=== PATIENT | male | born 1990 | race American Indian/Alaskan Native ===

== ENCOUNTER 2017-04-19 10:39 | Emergency (ER) | payer BC ==
[2017-04-19 10:45] VITALS: O2SAT 98
[2017-04-19 11:44] LABS: BASO % 0.4 % (0.0-2.0); EOS # 0.1 K/uL (0.0-0.7); EOS % 2.5 % (0.0-4.0); HEMATOCRIT 40.5 % (35.0-51.0); LYMPH # 1.6 K/uL (1.0-4.3); LYMPH % 37.1 % (20.0-40.0); MEAN CELL VOLUME 90.3 fL (80.0-94.0); MEAN CORPUSCULAR HEMOGLOBIN 30.1 pg (27.0-31.0); MEAN CORPUSCULAR HGB CONC 33.3 g/dL (33.0-37.0); MEAN PLATELET VOLUME 8.1 fL (7.2-11.7); MONO # 0.4 K/uL (0.0-0.8); MONO % 9.1 % (0.0-10.0); NRBC % 0.1 % (0.0-2.0); RED CELL DISTRIBUTION WIDTH 12.7 % (11.5-14.5); WHITE BLOOD COUNT 4.3 K/uL (4.8-10.8)
[2017-04-19 11:50] LABS: URINE BILIRUBIN NEGATIVE (NEGATIVE); URINE BLOOD NEGATIVE (NEGATIVE); URINE COLOR Yellow (YELLOW); URINE GLUCOSE (UA) NORMAL (Normal); URINE KETONE NEGATIVE (NEGATIVE); URINE LEUKOCYTE ESTERASE NEG Leu/uL (Negative); URINE PROTEIN NEGATIVE (NEGATIVE); URINE UROBILINOGEN NORMAL mg/dL (0.2-1.0); WBC URINE < 1 /hpf (0-5)
[2017-04-19 11:52] LABS: CHLORIDE 105 mmol/L (98-107); SODIUM 143 mmol/L (132-148)
[2017-04-19 11:55] LABS: ALB/GLOB RATIO 1.4 (1.0-2.1); ALKALINE PHOSPHATASE 76 U/L (38-126); ALT/SGPT 110 U/L (21-72); AST/SGOT 94 U/L (17-59); BILIRUBIN,TOTAL 0.7 mg/dL (0.2-1.3); BLOOD UREA NITROGEN 15 mg/dL (9-20); CARBON DIOXIDE 26 mmol/L (22-30); GFR AFRICAN-AMERICAN > 60; GLUCOSE,RANDOM 96 mg/dL (75-110); TOTAL PROTEIN 7.8 g/dL (6.3-8.3)
[2017-04-19 11:56] LABS: CALCIUM 9.5 mg/dl (8.6-10.4)
--- NOTE | 2017-04-19 12:17 | C.PDOC ---
History Of Present Illness Patient is a 27 year old male presents to ED for evaluation of diffuse abdominal pain associated with diarrhea that started last night. Pt states these symptoms may be due to the rice he ate yesterday. (+) nausea (+)headache. Otherwise, denies any vomiting, urinary symptoms, fever, or any other associated symptoms at this time. Time Seen by Provider: 04/19/17 11:12 Chief Complaint (Nursing): Abdominal Pain History Per: Patient History/Exam Limitations: no limitations Onset/Duration Of Symptoms: Days (1), Sudden Onset Current Symptoms Are (Timing): Still Present Location Of Pain/Discomfort: Diffuse Radiation Of Pain To:: None Quality Of Discomfort: "Pain" Associated Symptoms: Nausea, Diarrhea. denies: Vomiting, Loss Of Appetite, Back Pain, Chest Pain, Constipation, Urinary Symptoms Exacerbating Factors: None Alleviating Factors: None Recent travel outside of the [place]: No Additional History Per: Patient Past Medical History Reviewed: Historical Data, Nursing Documentation, Vital Signs Vital Signs: Last Vital Signs Temp 98.0 F 04/19/17 12:34 Pulse 82 04/19/17 12:34 Resp 17 04/19/17 12:34 BP 99/56 L 04/19/17 12:34 Pulse Ox 98 04/19/17 12:34 Family History: States: Unknown Family Hx - Social History Hx Alcohol Use: No Hx Substance Use: No - Immunization History Hx Tetanus Toxoid Vaccination: No Hx Influenza Vaccination: No Hx Pneumococcal Vaccination: No Review Of Systems Except As Marked, All Systems Reviewed And Found Negative. Constitutional: Negative for: Fever, Chills Gastrointestinal: Positive for: Nausea, Abdominal Pain, Diarrhea. Negative for : Vomiting, Constipation Genitourinary: Negative for: Dysuria, Frequency, Hematuria Musculoskeletal: Negative for: Back Pain Neurological: Positive for: Headache. Negative for: Dizziness Physical Exam - Physical Exam Appears: Non-toxic, No Acute Distress Skin: Normal Color, Warm, Dry Head: Atraumatic, Normacephalic Eye(s): bilateral: Normal Inspection, PERRL, EOMI Nose: Normal Oral Mucosa: Moist Neck: Normal ROM, Supple ((-) brudzinski's sign and kernig's sign) Chest: Symmetrical Cardiovascular: Rhythm Regular, No Murmur Respiratory: Normal Breath Sounds, No Rales, No Rhonchi, No Wheezing Gastrointestinal/Abdominal: Soft, Tenderness (diffuse), No Guarding, No Rebound Back: Normal Inspection, No CVA Tenderness Extremity: Normal ROM Neurological/Psych: Oriented x3, Normal Speech ED Course And Treatment - Laboratory Results Result Diagrams: 04/19/17 11:37 04/19/17 11:37 O2 Sat by Pulse Oximetry: 98 (on RA) Pulse Ox Interpretation: Normal Progress Note: Blood work, UA ordered and reviewed. Pt was given Zofran, Toradol , Pepcid, and Reglan. On reassessment, patient is resting comfortably, abdomen remains soft. Notes feeling better. Pt notes that his abdominal pain has resolved. Tolerating PO. Patient feels comfortable going home. Patient will be discharged home with instructions to follow up with PMD in 1-2 days for further evaluation. Disposition - Disposition Disposition: HOME/ ROUTINE Disposition Time: 12:48 Condition: STABLE Additional Instructions: Follow up with your primary medical doctor or clinic in 2-5 days for further evaluation. Return to the emergency department at any time if symptoms persist or worsen. 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 - Scribe Statement The provider has reviewed the documentation as recorded by the Scribe Deanne Faustin All medical record entries made by the Andrésibkristy were at my direction and personally dictated by me. I have reviewed the chart and agree that the record accurately reflects my personal performance of the history, physical exam, medical decision making, and the department course for this patient. I have also personally directed, reviewed, and agree with the discharge instructions and disposition.
[2017-04-19 12:39] VITALS: BP 99/56; PULSE 82; RESP 17; TEMP 98
== END 2017-04-19 13:01 | disposition home or self-care (01) ==
LOC: C.ER 10:39
DX: R10.9 Unspecified abdominal pain (principal)
CPT/HCPCS: 80053; 81001; 83690; 85025; 94770; 96374; 96375; 99285; J1885; J2765

== ENCOUNTER 2017-08-28 03:21 | Emergency (ER) | payer BC ==
[2017-08-28 03:46] VITALS: RESP 18; TEMP 97.8
--- NOTE | 2017-08-28 04:28 | C.PDOC ---
History Of Present Illness 27 y/o male was BIBEMS with c/o of pain to Rt foot after a heavy metal fell on it. Denies weakness or numbness Time Seen by Provider: 08/28/17 03:47 Chief Complaint (Nursing): Lower Extremity Problem/Injury History Per: Patient History/Exam Limitations: no limitations Current Symptoms Are (Timing): Better Pain Scale Rating Of: 4 Recent travel outside of the [place]: No - Ankle/Foot Description Of Injury: Struck With Object Past Medical History Vital Signs: Last Vital Signs Temp 97.8 F 08/28/17 03:43 Pulse 80 08/28/17 03:43 Resp 18 08/28/17 03:43 BP 137/75 08/28/17 03:43 Pulse Ox 97 08/28/17 03:43 - Medical History PMH: No Chronic Diseases Family History: States: Unknown Family Hx - Social History Hx Alcohol Use: No Hx Substance Use: No - Immunization History Hx Tetanus Toxoid Vaccination: No Hx Influenza Vaccination: Yes Hx Pneumococcal Vaccination: No Review Of Systems Except As Marked, All Systems Reviewed And Found Negative. Constitutional: Negative for: Weakness, Malaise Musculoskeletal: Positive for: Foot Pain Neurological: Negative for: Weakness, Numbness Physical Exam - Physical Exam Appears: Non-toxic Eye(s): bilateral: Normal Inspection Male Genital: Normal Inspection Extremity: No Normal ROM (decrease to right great toe, minimal swelling to rigt 1st toe and decrease ROM due to pain), Tenderness (right great toe), No Deformity, No Swelling, No Other (b=no h) Extremity: Bilateral: Normal Color And Temperature Pulses: Left Dorsalis Pedis: Normal, Right Dorsalis Pedis: Normal Neurological/Psych: Oriented x3, Normal Speech, Normal Motor, Normal Sensation Gait: Other (with minimal limp) ED Course And Treatment O2 Sat by Pulse Oximetry: 97 Pulse Ox Interpretation: Normal - Other Rad foot xr-rt X-Ray: Interpreted by Me, Viewed By Me (and dr najera) Interpretation: Pt advised follow up with podiatry Progress Note: PO given Disposition Counseled Patient/Family Regarding: Diagnosis, Need For Followup, Rx Given - Disposition Referrals: Podiatry Clinic [Outside] Disposition: HOME/ ROUTINE Disposition Time: 04:39 Condition: STABLE Additional Instructions: please apply ICE to area Take motrin for pain Return to ER if worse Prescriptions: Ibuprofen [Motrin] 600 mg PO Q6H #20 tab Instructions: Foot Contusion (ED) Forms: [facility] (Swedish), Work Excuse - Clinical Impression Clinical Impression: Foot contusion
[2017-08-28 05:08] VITALS: BP 128/79; PULSE 73; O2SAT 95
--- NOTE | 2017-08-28 11:41 | RAD ---
PROCEDURE: Right Foot Radiographs. HISTORY: injured right foot,pain COMPARISON: None available. FINDINGS: BONES: No acute displaced fracture. JOINTS: No dislocation. SOFT TISSUES: Unremarkable. No evidence of radiopaque foreign body. OTHER FINDINGS: None. IMPRESSION: No acute displaced fracture, dislocation, or significant joint effusion identified. If symptoms persist, or if there is continued clinical concern, x-ray follow-up in 7-10 days should be considered.
== END 2017-08-28 05:23 | disposition home or self-care (01) ==
LOC: C.ER 03:21
DX: S90.31XA Contusion of right foot, initial encounter (principal); W22.8XXA Striking against or struck by other objects, initial encounter

== ENCOUNTER 2017-10-18 00:47 | Emergency (ER) | payer BC ==
[2017-10-18 01:03] VITALS: BP 131/78; RESP 20; O2SAT 96
--- NOTE | 2017-10-18 01:16 | C.PDOC ---
History Of Present Illness pt presents with rectal pain. has history of hemorrhoids. No rectal bleeding. Time Seen by Provider: 10/18/17 01:16 Chief Complaint (Nursing): Abnormal Skin Integrity History Per: Patient History/Exam Limitations: no limitations Onset/Duration Of Symptoms: Days Current Symptoms Are (Timing): Worse Quality Of Symptoms: Painful Severity: Moderate Pain Scale Rating Of: 5 Recent travel outside of the [place]: No Additional History Per: Patient Past Medical History Reviewed: Historical Data, Nursing Documentation, Vital Signs Vital Signs: Last Vital Signs Temp 98.5 F 10/18/17 00:56 Pulse 114 H 10/18/17 00:56 Resp 20 10/18/17 00:56 BP 131/78 10/18/17 00:56 Pulse Ox 96 10/18/17 01:16 Family History: States: No Known Family Hx - Social History Hx Alcohol Use: No Hx Substance Use: No - Immunization History Hx Tetanus Toxoid Vaccination: No Hx Influenza Vaccination: No Hx Pneumococcal Vaccination: No Review Of Systems Constitutional: Negative for: Fever, Chills Gastrointestinal: Positive for: Rectal Pain Neurological: Negative for: Weakness Psych: Negative for: Anxiety Physical Exam - Physical Exam Appears: Non-toxic Rectal: Hemorrhoids (large external, not bleeding), Tenderness Neurological/Psych: Oriented x3 ED Course And Treatment O2 Sat by Pulse Oximetry: 96 Disposition Counseled Patient/Family Regarding: Studies Performed, Diagnosis, Need For Followup, Rx Given - Disposition Referrals: Jordan Santos MD [Staff Provider] - Giselle Todd MD [Staff Provider] - Disposition: HOME/ ROUTINE Disposition Time: 01:16 Condition: FAIR Prescriptions: Hydrocortisone 2.5% (Rectal) [Anusol-HC] 30 applic NC BID #1 tube Lidocaine [Recticare] 30 gm TP TID PRN #1 cream..g. PRN Reason: Pain, Moderate (4-7) Polyethylene Glycol 3350 [Miralax] 17 gm PO DAILY #270 ml Instructions: Hemorrhoids (DC), How to Do a Sitz Bath Forms: [facility] (Frisian) - Clinical Impression Clinical Impression: Hemorrhoids, external
[2017-10-18] MEDS ORDERED: Nitroglycerin 2% Ointment Foilpak UD TOP ONE (01:44)
[2017-10-18] MEDS ORDERED: Lidocaine 2% Jelly (Uro-Jet) ONE (01:45)
[2017-10-18] MEDS ORDERED: Lidocaine 2% Jelly (Uro-Jet) TOP ONE (01:48)
[2017-10-18 02:09] VITALS: PULSE 82; TEMP 98
== END 2017-10-18 02:08 | disposition home or self-care (01) ==
LOC: C.ER 00:47
DX: K64.4 Residual hemorrhoidal skin tags (principal)